=== PATIENT | male | born 1990 | race Two or more races ===

== ENCOUNTER 2016-11-17 03:03 | Emergency (ER) | payer SELFPAY ==
[~2016-11-17] VITALS: Ht 172.7 cm; Wt 82.0 kg
[2016-11-17 03:04] VITALS: BP 142/81; PULSE 98; RESP 18; TEMP 98.4; O2SAT 98
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
[2016-11-17] MEDS ORDERED: ACETAMINOPHEN/HYDROcodone 325 MG/5 MG TAB PO ONE (04:15)
[2016-11-17] MEDS ORDERED: IBUPROFEN 600 MG TAB PO ONE (04:15)
[2016-11-17] MEDS ORDERED: NAPR500 PO (04:15)
[2016-11-17] MEDS ORDERED: HYDR-3533 PO (04:15)
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
== END 2016-11-17 04:43 | disposition home or self-care (01) ==
LOC: NEPD 03:03
DX: S62.337A Displaced fracture of neck of fifth metacarpal bone, left hand, initial encounter for closed fracture (principal); W22.09XA Striking against other stationary object, initial encounter
CPT/HCPCS: 29125; 73130